=== PATIENT | female | born 1955 | race Caucasian/White ===

== ENCOUNTER → 2024-01-08 13:03 | Outpatient (REF) | payer MEDICARE, SELFPAY | LOC: WDC 13:03 | PROVIDERS: ATTENDING PHYSICIAN Family Medicine | DX: Z12.31 Encounter for screening mammogram for malignant neoplasm of breast (principal); M81.0 Age-related osteoporosis without current pathological fracture | CPT/HCPCS: 77063; 77067; 77080 ==

== ENCOUNTER → 2024-03-29 11:29 | Outpatient (REF) | payer MEDICARE, SELFPAY | LOC: RAD 11:29 | PROVIDERS: ATTENDING PHYSICIAN Internal Medicine Cardiovascular Disease; FAMILY PHYSICIAN Family Medicine | DX: M15.9 Polyosteoarthritis, unspecified (principal) | CPT/HCPCS: 73502 ==

== ENCOUNTER → 2024-08-30 16:13 | Outpatient (REF) | payer MEDICARE, SELFPAY | LOC: DHSLP 16:13 | PROVIDERS: ATTENDING PHYSICIAN Family Medicine | DX: G47.33 Obstructive sleep apnea (adult) (pediatric) (principal) | CPT/HCPCS: 95800 ==

== ENCOUNTER → 2024-10-06 15:01 | Outpatient (REF) | payer MEDICARE, SELFPAY | LOC: PAVMRI 15:01 | PROVIDERS: ATTENDING PHYSICIAN Psychiatry & Neurology Neurology; FAMILY PHYSICIAN Family Medicine | DX: M54.16 Radiculopathy, lumbar region (principal) | CPT/HCPCS: 72148; 72195 ==

== ENCOUNTER → 2025-01-13 12:39 | Outpatient (REF) | payer MEDICARE, SELFPAY | LOC: WDC 12:39 | PROVIDERS: ATTENDING PHYSICIAN Obstetrics & Gynecology; FAMILY PHYSICIAN Family Medicine | DX: Z12.31 Encounter for screening mammogram for malignant neoplasm of breast (principal) | CPT/HCPCS: 77063; 77067 ==

== ENCOUNTER 2025-03-15 12:38 | Emergency (ER) | payer MEDICARE, SELFPAY ==
[2025-03-15 12:42] VITALS: BP 165/88
--- NOTE | 2025-03-15 15:54 | ED.GENMED ---
History of Present Illness
General
Chief Complaint: Eye Problems
Time Seen by Provider: 03/15/25 15:53
History of Present Illness
History of Present Illness:
TIME OF INITIAL ENCOUNTER: 3:15 PM
HPI: The patient presents due to transient change in vision to the inferior aspect of the left eye. This occurred last night around 8 PM. It lasted for about 4 minutes. A similar episode occurred about a month ago. She saw Dr. Johnson at [facility]
and had thorough who sent her here for further evaluation and imaging. She also reports some fatigue over the past month as well.
EXAM:
GENERAL: Well appearing in no distress
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
CARDIOVASCULAR: No murmurs, normal heart rate, regular rhythm, No chest wall tenderness
PULMONARY: No respiratory distress, breath sounds are clear and equal
ABDOMEN: Soft with no peritoneal signs, no tenderness
NEUROLOGIC: Excellent strength all extremities, no coordination deficits
PSYCHIATRIC: Appropriate mental status, normal insight and judgement
EXTREMITIES: Nontender, no edema, moves all extremities equally
SKIN: No rash, no lesions
NUMBER AND COMPLEXITY OF PROBLEMS ADDRESSED AT THE ENCOUNTER
� Chronic conditions affecting care: Rheumatoid arthritis on Fosamax
� Acute Exacerbation and/or Progression of Chronic Illness: This is an acute problem
� Differential Diagnosis includes: Amaurosis fugax, posterior vitreous detachment, CRAO, CRVO, TIA/CVA
AMOUNT AND/OR COMPLEXITY OF DATA TO BE REVIEWED AND ANALYZED
� I performed an independent evaluation of and my interpretation is:
EKG:
CT: CT head and CTA neck and head unremarkable.
X-rays:
Laboratory Studies: CBC and chemistries unremarkable, CRP is normal, sed rate is minimally elevated 27
Other:
� Review of other/old records: I reviewed records, the patient had sooner evaluation due to excessive daytime somnolence in 2023
� Clinical information was obtained by an independent historian: None needed
� Prescriptions/Medications Considered but not given:
� Further testing considered but not performed:
RISK OF COMPLICATIONS AND/OR MORBIDITY OR MORTALITY OF PATIENT MANAGEMENT
� Social determinants of health affecting care: Lives at home
� Discussion with other providers: Sent message to Dr. Brunson.
� Escalation of care including admission/observation vs risk of discharge considered: The patient was sent here for further evaluation including neuroimaging by ophthalmology. CT and CTA obtained.
ANY OTHER UPDATES:
6:30 PM: I reassessed patient. She still has no vision change. Vision at baseline. I attempted to contact the referring physician twice but there has been no response. I texted and called him from my phone. The patient also reports excessive
daytime somnolence. Mild MIGUEL noted on prior sleep study. Her bicarb today is slightly high at 32 and I suggested to the patient to consider trying CPAP and at least talk to her clinical rn liaison for reevaluation.
Phy Exam
Physical Exam
Physical Exam:
See HPI
Course
Orders/Labs/Results
Orders:
Orders
03/15/25
CT Head & Neck Angio W/wo IV Urgent
Reason For Exam: VISION LOSS, SENT BY [facility]
03/15/25 15:32
C-Reactive Protein Urgent
Comment: ADD ON
Complete Blood Count/With Diff Routine
Comprehensive Metabolic Panel Routine
Erythrocyte Sed Rate Routine
Comment: ADD ON
03/15/25 16:53
Add On- LAB Urgent
Tests Added?: crp esr
Abnormal Lab Results
03/15/25
15:32
MCH 32.9 H pg
(27.0-31.0)
ESR 27 H mm/hour
(0-20)
Carbon Dioxide 32 H mmol/L
(22-30)
BUN 18 H mg/dl
(7-17)
03/15/25 15:32
03/15/25 15:32
Vital Signs
Initial and Last Documented VS:
Initial Vital Signs
Temp Pulse Resp BP Pulse Ox
36.4 C 88 16 165/88 98
03/15/25 12:42 03/15/25 12:42 03/15/25 12:42 03/15/25 12:42 03/15/25 12:42
Last Documented Vital Signs
Temp Pulse Resp BP Pulse Ox
36.4 C 71 18 130/68 99
03/15/25 12:42 03/15/25 18:06 03/15/25 18:06 03/15/25 18:06 03/15/25 18:06
*Critical Care Note
Total Time (30-74mins, 75-104mins- exclusive of procedures): Not Applicable
ED Attending Note
-
Portions of this chart may have been created with voice recognition software.� Occasional wrong word or��sound alike� substitutions may have occurred due to the inherent limitations of voice recognition software.
Discharge Plan
Departure
Patient Disposition: Home (Routine Discharge)
Date of Disposition: 03/15/25
Time of Disposition: 18:42
Patient with high blood pressure during this ER visit?: Yes
Discharge Problem:
Visual changes
Instructions: BLOOD PRESSURE
Referrals:
Teresa Casillas MD [Family Provider, [facility]]
Activity Restrictions/Additional Instructions:
The CAT scan of the neck as well as a CAT scan angiography of the head and neck were all normal. Basic blood work is unremarkable. Bicarb level is just slightly high at 32. C-reactive protein is normal. Sed rate is minimally elevated at 27. I
spoke to the neurologist, Dr. Brunson who recommends that you could baby aspirin daily for prevention.
Interventions
Interventions:
*Risk Screen - Suicide Last Done: 03/15/25 12:42
*General Assessment Last Done: 03/15/25 12:42
*Neglect/Abuse Screening Last Done: 03/15/25 12:42
*Nursing Disposition Last Done: 03/15/25 18:52
Discharge Date and Time
Discharge Date/Time: 03/15/25 18:56
Print Language: MAORI
[2025-03-15 16:49] VITALS: BP 137/82; BMI 24.8
[2025-03-15 16:58] LABS: Blood Urea Nitrogen 18 mg/dl (7-17); Calcium 9.5 mg/dl (8.4-10.2); Carbon Dioxide 32 mmol/L (22-30); Chloride 104 mmol/L (98-107); Estimated Creatinine Clearance -28 ml/min; Glucose 88 mg/dl (70-99); Potassium 4.1 mmol/L (3.5-5.1); Sodium 140 mmol/L (135-145); eGFR > 60.00
[2025-03-15 17:00] LABS: % Basophils 0.4 % (0-2); % Eosinophils 2.3 % (0-6); % Immature Granulocytes 0.3 % (0-0.5); % Lymphocytes 32.7 % (20.5-51.1); % Monocytes 7.2 % (1.7-9.3); % Neutrophils 57.1 % (42.2-75.2); Absolute Eosinophils 0.2 10^3/uL (0-0.7); Absolute Lymphocytes 2.4 10^3/uL (1.2-3.4); Absolute Monocytes 0.5 10^3/uL (0.1-0.6); Absolute Neutrophils 4.2 10^3/uL (1.4-6.5); Hematocrit 41.5 % (37.0-47.0); Hemoglobin 14.1 g/dL (12.0-16.0); Mean Corpuscular Hgb 32.9 pg (27.0-31.0); Mean Corpuscular Volume 96.7 fL (81.0-99.0); Mean Platelet Volume 8.9 fL (7.4-10.4); Nucleated Red Blood Cells % 0 %; Platelet Count 234 10^3/uL (130-400); Red Blood Cell Count 4.29 10^6/uL (4.20-5.40); Red Cell Dist. Width 12.5 % (11.5-14.5); White Blood Cell Count 7.4 10^3/uL (4.8-10.8)
[2025-03-15 17:13] LABS: ALT (SGPT) 24 U/L (0-35); AST (SGOT) 24 U/L (14-36); Alkaline Phosphatase 55 U/L (38-126); Total Bilirubin 0.3 mg/dl (0.2-1.3); Total Protein 6.9 g/dl (6.3-8.2)
[2025-03-15 17:38] LABS: Erythrocyte Sed Rate 27 mm/hour (0-20)
[2025-03-15 18:06] VITALS: BP 130/68
--- NOTE | 2025-03-15 19:20 | DOWNTIME ---
There was a [employer] Of [employer] Downtime on 03/15/2025 from 1230 to 03/15/2025 at 1550. Downtime documentation of patient's care, including medication administrations, has been reconciled in the electronic record per guidelines. Refer to the
patient's paper chart under the miscellaneous tab to see printed paper medication records and downtime forms.
== END 2025-03-15 18:56 | disposition home or self-care (01) ==
LOC: EMR 12:38
PROVIDERS: EMERGENCY PHYSICIAN Emergency Medicine; FAMILY PHYSICIAN Family Medicine
DX: H54.7 Unspecified visual loss (principal); H53.9 Unspecified visual disturbance; R03.0 Elevated blood-pressure reading, without diagnosis of hypertension; R40.0 Somnolence; R53.83 Other fatigue
CPT/HCPCS: 99285; 70496; 70498; 80053; 85025; 85652; 86140; Q9967

== ENCOUNTER 2025-03-29 08:58 | Day surgery (SDC) | payer MEDICARE, SELFPAY ==
[2025-03-29] VITALS (11 sets, daily range): BP systolic 12–150; BP diastolic 51–87; BMI 24.0
[2025-03-29 09:41] LABS: Hematocrit 43.6 % (37.0-47.0); Hemoglobin 14.3 g/dL (12.0-16.0); Mean Corp Hgb Conc. 32.8 g/dL (33.0-37.0); Mean Corpuscular Hgb 32.4 pg (27.0-31.0); Mean Corpuscular Volume 98.6 fL (81.0-99.0); Mean Platelet Volume 8.7 fL (7.4-10.4); Platelet Count 272 10^3/uL (130-400); Red Blood Cell Count 4.42 10^6/uL (4.20-5.40); Red Cell Dist. Width 12.7 % (11.5-14.5); White Blood Cell Count 11.3 10^3/uL (4.8-10.8)
[2025-03-29 09:51] LABS: INR 0.92; PT 12.8 Sec (11.4-14.6)
[2025-03-29 09:52] LABS: APTT 23.6 Sec (23.4-35.0)
[2025-03-29 10:05] LABS: Blood Urea Nitrogen 14 mg/dl (7-17); Calcium 9.2 mg/dl (8.4-10.2); Carbon Dioxide 30 mmol/L (22-30); Chloride 104 mmol/L (98-107); Estimated Creatinine Clearance 66 ml/min; Glucose 84 mg/dl (70-99); Sodium 140 mmol/L (135-145); eGFR > 60.00
--- NOTE | 2025-03-29 11:22 | W.SUR.PREOP ---
Addendum entered and electronically signed by Jayson Mahoney MD 03/29/25 11:24:
Seen and evaluated. Fully discussed with patient my role in temporal arteritis providing tissue for temporal artery biopsy. Discussed procedure. Discussed risks including but not limited to bleeding, infection, nerve injury. She understands all
wishes to proceed.
Original Note:
Pre-Operative Surgical Note
-
I have examined this patient prior to the performance of the scheduled procedure.
The patient's condition is unchanged from the time of the current History and
Physical and the patient is able to undergo the scheduled procedure.
--- NOTE | 2025-03-29 12:22 | W.SUR.POST ---
Surgical Immediate Post Op
Note
Pre Op Diagnosis: Rule out giant cell arteritis
Post Op Diagnosis: Rule out giant cell arteritis
Procedure Performed: Bilateral temporal artery biopsy
Primary Surgeon: Jayson Mahoney M.D., MD
personnel security assistant: RADHA Tong
Anesthesia: MAC
Estimated Blood Loss: 2 mL
Fluids: See anesthesia flowsheet
Drains/Shunts: N/A
Specimens/Cultures: Bilateral temporal artery
Doppler/Duplex/Angio (Y/N): Y
Complications: None
Operative Findings: Successful biopsy segment of bilateral temporal artery
--- NOTE | 2025-03-29 12:57 | OR.RPT ---
Operative Report
Operative Report
PROCEDURE DATE: 03/29/2025
Preoperative diagnosis: Temporal arteritis
Postoperative diagnosis: Same
Procedure: Bilateral superficial temporal artery biopsy
Surgeon: Denzel
Labor Custodian: Michele
Complications: None
Anesthesia: Local, sedation
Indications for procedure:
Referred for temporal artery biopsy due to concern for temporal arteritis. Risk/benefits/alternatives to temporal artery biopsy fully discussed. Patient understood and wished to proceed.
Description of procedure:
Patient was identified brought to the operating room placed on the table in supine position. After the adequate administration of anesthesia and perioperative antibiotics she was prepped and draped in the standard surgical fashion. A standard
preoperative timeout was undertaken and everybody was in agreement the plan. A longitudinal incision was made in the scalp just anterior and superior to the superiormost aspect of the pinna of the right ear (overlying the palpable pulsation of the
artery) after infiltration of the skin and subcutaneous tissue with 1% lidocaine. This was carried down through the subcutaneous layer and the fascia layer with electrocautery. The superficial temporal artery was identified. It was mobilized
using sharp dissection. Appeared to be a relatively normally appearing small artery. It was then ligated proximally and distally as well as a branch ligated all with silk ties and a clip. I then transected the artery. This was then sent for
specimen.
A similar incision was made in the left scalp just anterior and superior to the superiormost aspect of the pinna of the left ear (overlying the palpable pulsation of the artery) after infiltration of the skin and subcutaneous tissue with 1%
lidocaine. Similarly this was carried down through the subcutaneous tissue and fascial layer with the electrocautery. The superficial temporal artery was identified and was mobilized using sharp dissection. Appeared to be a relatively normally
appearing small artery. It was then ligated proximally and distally as well as a branch ligated all with silk ties and a clip. I then transected the artery. This was then sent for specimen.
Both incision sites were then irrigated. Hemostasis was achieved and confirmed. We then closed in layers using 3-0 Vicryl deep dermal layer followed by 4-0 Monocryl subcuticular running layer (this was completed bilaterally). Dermabond was then
applied bilaterally. Patient tolerated procedure well.
== END 2025-03-29 13:53 | disposition home or self-care (01) ==
LOC: CATH 08:58
PROVIDERS: ATTENDING PHYSICIAN Surgery Vascular Surgery; FAMILY PHYSICIAN Family Medicine; OTHER PHYSICIAN Internal Medicine Cardiovascular Disease; OTHER PHYSICIAN Internal Medicine Rheumatology
DX: R70.0 Elevated erythrocyte sedimentation rate (principal); Z03.89 Encounter for observation for other suspected diseases and conditions ruled out; R68.84 Jaw pain; H53.122 Transient visual loss, left eye; Z79.82 Long term (current) use of aspirin; Z79.52 Long term (current) use of systemic steroids; Z79.899 Other long term (current) drug therapy
CPT/HCPCS: 37609; 88305; 80048; 85027; 85610; 85730; 86850; 86900; 86901; 88313

== ENCOUNTER → 2025-04-07 13:02 | Outpatient (REF) | payer MEDICARE, SELFPAY | LOC: HWRCS 13:02 | PROVIDERS: ATTENDING PHYSICIAN Internal Medicine Cardiovascular Disease; FAMILY PHYSICIAN Family Medicine | DX: R06.02 Shortness of breath (principal); R94.31 Abnormal electrocardiogram [ECG] [EKG] | CPT/HCPCS: 93306 ==

== ENCOUNTER → 2025-04-25 07:41 | Outpatient (REF) | payer MEDICARE, SELFPAY | LOC: HWEVLT 07:41 | PROVIDERS: ATTENDING PHYSICIAN Radiology Vascular & Interventional Radiology | DX: I83.893 Varicose veins of bilateral lower extremities with other complications (principal) | CPT/HCPCS: 93970 ==

== ENCOUNTER → 2025-04-28 08:24 | Outpatient (REF) | payer MEDICARE, SELFPAY | LOC: RCS 08:24 | PROVIDERS: ATTENDING PHYSICIAN Internal Medicine Cardiovascular Disease; FAMILY PHYSICIAN Family Medicine | DX: R06.02 Shortness of breath (principal); R94.31 Abnormal electrocardiogram [ECG] [EKG] | CPT/HCPCS: 78452; 93017; A9500; J2785 ==

== ENCOUNTER → 2025-05-02 15:31 | Outpatient (REF) | payer MEDICARE, SELFPAY | LOC: MRI 3T 15:31 | PROVIDERS: ATTENDING PHYSICIAN Nurse Practitioner Adult Health; FAMILY PHYSICIAN Family Medicine | DX: H53.122 Transient visual loss, left eye (principal) | CPT/HCPCS: 70551 ==